=== PATIENT | female | born 1970 | race African-American/Black ===

== ENCOUNTER 2023-06-26 17:04 | Outpatient (REF) | payer MEDICARE, MEDICAID, SELFPAY ==
[2023-06-26 18:18] LABS: Basophils Percent Auto 0.2 % (0.2-2.0); Eosinophils Absolute Auto 0.2 10^3/uL (0.0-0.7); Eosinophils Percent Auto 1.4 % (0.9-7.0); Hematocrit 33.3 % (36.0-48.0); Immature Granulocytes Abs Auto 0.02 10^3/uL (0.00-0.03); Immature Granulocytes Pct Auto 0.2 % (0.0-0.5); Lymphocytes Absolute Auto 3.1 10^3/uL (1.2-3.8); Lymphocytes Percent Auto 30.2 % (20.5-60.0); Mean Corpuscular Hemoglobin 27.4 pg (26.7-34.0); Mean Corpuscular Volume 91.2 fL (81.0-99.0); Mean Platelet Volume 11.1 fL (9.5-13.5); Monocytes Absolute Auto 0.5 10^3/uL (0.3-0.8); Monocytes Percent Auto 4.6 % (1.7-12.0); Neutrophils Absolute Auto 6.6 10^3/uL (1.4-6.5); Neutrophils Percent Auto 63.4 % (43.0-75.0); Platelet Count 342 10^3/uL (150-450); Red Blood Count 3.65 10^6/uL (4.20-5.40); Red Cell Distribution Width 14.8 % (11.0-15.0); White Blood Count 10.4 10^3/uL (4.0-11.0)
== END 2023-06-26 17:05 | disposition home or self-care (01) ==
LOC: LAB 17:04
DX: D64.9 Anemia, unspecified (principal); R52 Pain, unspecified
CPT/HCPCS: 36415; 85025